=== PATIENT | male | born 1965 | race Caucasian/White ===

== ENCOUNTER 2025-01-10 10:54 | Day surgery (SDC) | payer BC ==
[2025-01-10] MEDS ORDERED: Sodium Chloride 0.9% 10 ML Syringe FLUSH PRN (11:00)
[2025-01-10] MEDS ORDERED: Midazolam 1 MG/ML 2 ML SDV ONE (11:34)
[2025-01-10] MEDS ORDERED: Propofol 200 MG/20 ML SDV ONE (11:35)
[2025-01-10] MEDS: Lactated Ringers 1,000 ML IV SCH (11:37)
[2025-01-10 14:50] VITALS: BP 129/72; PULSE 53
== END 2025-01-10 14:19 | disposition home or self-care (01) ==
LOC: KA.SDS 10:54
PROVIDERS: ATTEND Surgery
DX: Z12.11 Encounter for screening for malignant neoplasm of colon (principal); Z88.0 Allergy status to penicillin
CPT/HCPCS: 00812; J2250; J2704; J7120